=== PATIENT | male | born 1950 | race Caucasian/White ===

== ENCOUNTER 2017-03-22 20:44 | Inpatient (IN) | payer MEDICARE, OTHER ==
[2017-03-22 21:00] LABS: Glucose,Whole Blood 161 mg/dL (75-99)
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
[2017-03-22 21:24] LABS: Basophils # (A) 0.1 k/uL (0-0.2); Basophils % (A) 1 %; CH 31.8; CHCM 33.6; Eosinophils # (A) 0.6 k/uL (0-0.7); Eosinophils % (A) 5 %; HCT 45.8 % (39.0-53.0); HDW 2.57; HGB 15.6 gm/dL (13.0-17.5); Luc # (Auto) 0.24; Luc % (Auto) 2; Lymphocytes # (A) 1.7 k/uL (1.0-4.8); Lymphocytes % (A) 14 %; MCH 32.3 pg (25.0-35.0); MCV 95.1 fL (80.0-100.0); Mean Platelet Volume 7.8; Monocytes # (A) 0.6 k/uL (0-1.0); Monocytes % (A) 5 %; Neutrophils % (A) 74 %; RBC 4.82 m/uL (4.30-5.90); RDW 14.5 % (11.5-15.5); WBC 12.2 k/uL (3.8-10.6); WBC (Perox) 11.67
[2017-03-22 21:36] LABS: ALT 79 U/L (21-72); AST 67 U/L (17-59); Alkaline Phosphatase 119 U/L (38-126); Anion Gap 13 mmol/L; Blood Urea Nitrogen 21 mg/dL (9-20); Calcium 9.3 mg/dL (8.4-10.2); Carbon Dioxide 24 mmol/L (22-30); Chloride 104 mmol/L (98-107); Glucose 166 mg/dL (74-99); Magnesium 1.4 mg/dL (1.6-2.3); Non-African American GFR(MDRD) >60 (>60 ml/min/1.73 sqM); Potassium 3.9 mmol/L (3.5-5.1); Sodium 141 mmol/L (137-145); Total Bilirubin 0.6 mg/dL (0.2-1.3); Total Protein 7.4 g/dL (6.3-8.2)
[2017-03-22 21:40] LABS: Prothrombin Time 10.4 sec (9.0-12.0)
[2017-03-22 21:44] LABS: Creatine Kinase 41 U/L (55-170)
[2017-03-22 21:57] LABS: Creatine Kinase MB 0.4 ng/mL (0.0-2.4); Troponin I <0.012 ng/mL (0.000-0.034)
[2017-03-22] MEDS ORDERED: RX INFO: IV CONTRAST WAS GIVEN 1 EACH MISC MISCELLANE PRN (22:26)
[2017-03-22 22:48] LABS: Appearance,Urine Clear (Clear); Bilirubin,Urine Negative (Negative); Glucose,Urine (UA) Negative (Negative); Ketones,Urine Negative (Negative); Leukocyte Esterase,Urine Negative (Negative); Mucus,Urine Rare /hpf; Nitrite,Urine Negative (Negative); Particle Count 3664; Protein,Urine 1+ (Negative); RBC,Urine 2 /hpf (0-5); Specific Gravity,Urine 1.019 (1.001-1.035); UA Billing (MACRO vs. MICRO) MICRO; Urobilinogen,Urine <2.0 mg/dL (<2.0); WBC,Urine 2 /hpf (0-5)
--- NOTE | 2017-03-22 22:50 | XR ---
EXAM: XR Chest, 2 Views CLINICAL HISTORY: Reason: syncope TECHNIQUE: Frontal and lateral views of the chest. COMPARISON: No relevant prior studies available. FINDINGS: Lungs: Bilateral interstitial prominence. Bibasilar opacities, possible atelectasis or pneumonitis. Pleural space: Trace pleural effusions not excluded. Heart: Cardiac silhouette within normal limits. Mediastinum: Prominent mediastinal silhouette, may related to tortuous aorta. Bones/joints: Grossly intact. IMPRESSION: 1. Bilateral interstitial prominence. Bibasilar opacities, possible atelectasis or pneumonitis. 2. Trace pleural effusions not excluded. 3. Prominent mediastinal silhouette, may related to tortuous aorta. Compare to priors if available. CT may be considered if there is concern for underlying pathology.
--- NOTE | 2017-03-22 22:59 | CT ---
EXAM: CT Head Without Intravenous Contrast CLINICAL HISTORY: Reason: syncope TECHNIQUE: Axial computed tomography images of the head/brain without intravenous contrast. CTDI is 60.3 mGy and DLP is 1105.7 mGy-cm. This CT exam was performed using one or more of the following dose reduction techniques: automated exposure control, adjustment of the mA and/or kV according to patient size, and/or use of iterative reconstruction technique. COMPARISON: No relevant prior studies available. FINDINGS: Brain: Small hypodense focus in the right rachel, possible artifact or age indeterminate infarct. Nonspecific patchy white matter low attenuation, possible small vessel disease. No intracranial hemorrhage, mass effect or midline shift. No acute cortical infarct. Ventricles: Unremarkable. Bones/joints: No acute fracture. Soft tissues: Unremarkable. Sinuses: Unremarkable as visualized. Mastoid air cells: Unremarkable as visualized. IMPRESSION: 1. No intracranial hemorrhage or skull fracture. 2. Small hypodense focus in the right rachel, possible artifact or age indeterminate infarct. MRI may be considered if there is concern for acute ischemia. 3. Nonspecific patchy white matter low attenuation, possible small vessel disease.
--- NOTE | 2017-03-22 23:47 | CT ---
EXAM: CT Angiography Chest With Intravenous Contrast CLINICAL HISTORY: Syncope. Reason: pe protocol TECHNIQUE: Axial computed tomographic angiography images of the chest with intravenous contrast using pulmonary embolism protocol. CTDI is 0.17, 25. 2, 75.6, 37.43 mGy and DLP is 1493 mGy-cm. This CT exam was performed using one or more of the following dose reduction techniques: automated exposure control, adjustment of the mA and/or kV according to patient size, and/or use of iterative reconstruction technique. MIP reconstructed images were created and reviewed. COMPARISON: No relevant prior studies available. FINDINGS: Pulmonary arteries: Evaluation for PE is limited by suboptimal bolus timing. No large central PE is identified. Aorta: No aortic aneurysm or dissection. Atherosclerotic disease. Lungs: Mild dependent lung densities, likely atelectasis. A 4 mm right middle lobe nodule (image [id number]). Questionable faint 5 mm groundglass nodule in the right mid lung (image [id number]). Small bilateral calcified nodules. Pleural space: No significant effusion. No pneumothorax. Heart: Thickening of the left ventricular wall. Bones/joints: No acute fracture. Soft tissues: Unremarkable. Lymph nodes: Prominent right greater than left axillary lymph nodes. Small mediastinal and hilar lymph nodes. Liver: Fatty liver. Spleen: Mild splenomegaly. Adrenals: Nodular thickening of the right adrenal gland. Kidneys and ureters: Right renal hypodensity, probable cyst. Stomach and bowel: Small duodenal diverticula. IMPRESSION: 1. Evaluation for PE is limited by suboptimal bolus timing. No large central PE is identified. 2. No aortic aneurysm or dissection. 3. Mild dependent lung densities, likely atelectasis. Small pulmonary nodules. Compare to prior studies if available, otherwise follow up imaging may be considered per Fleischner Society recommendations. 4. Prominent right greater than left axillary lymph nodes. 5. Additional findings, as above.
[2017-03-23] MEDS ORDERED: LEVOFLOXACIN 750MG-D5W PMX 750 MG in DEXTROSE/WATER 1 150ML.BAG IVPB STA (00:39)
[2017-03-23] MEDS ORDERED: NALOXONE 0.4 MG/ML 1 ML VIAL IV PRN (00:42)
[2017-03-23] MEDS: SODIUM CHLORIDE 0.9% 1,000 ML IV SCH (01:02)
[2017-03-23 01:52] VITALS: BMI 43.9
[2017-03-23 05:24] LABS: Creatine Kinase MB 0.5 ng/mL (0.0-2.4); Troponin I 0.025 ng/mL (0.000-0.034)
[2017-03-23] MEDS ORDERED: Magnesium Replacement Protocol 1 EACH MISC MISCELLANE PRN (08:32)
[2017-03-23] MEDS: MAGNESIUM SULFATE-D5W PMX 1 GM in DEXTROSE/WATER 1 100ML.BAG IVPB SCH ×3 (10:00→15:18)
--- NOTE | 2017-03-23 10:14 | NM ---
EXAMINATION TYPE: NM pul vent and perfuse DATE OF EXAM: 03/23/2017 COMPARISON: Chest x-ray 03/22/2017 HISTORY: Syncope TECHNIQUE: Utilizing inhalation of 71.5 mCi Tc 99m DTPA aerosol and intravenous injection of 5.5 mCi of Tc 99m MAA, ventilation and perfusion images are acquired post injection in multiple projections. FINDINGS: No moderate or large mismatched defects are evident. No triple matched defects are evident. IMPRESSION: Low probability for pulmonary embolism.
[2017-03-23 10:24] LABS: Creatine Kinase MB 0.7 ng/mL (0.0-2.4); Troponin I 0.012 ng/mL (0.000-0.034)
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
[2017-03-23] MEDS: LOSARTAN-HCTZ 50-12.5 MG 1 EACH TAB PO SCH (13:55)
[2017-03-23] MEDS: CARVEDILOL 12.5 MG TAB PO SCH (13:55)
[2017-03-23] MEDS: PANTOPRAZOLE 40 MG TABLET PO SCH (13:55)
--- NOTE | 2017-03-23 15:49 | US ---
EXAMINATION TYPE: US carotid duplex BILAT DATE OF EXAM: 03/23/2017 COMPARISON: NONE CLINICAL HISTORY: r/o carotid stenosis. Syncope, no h/o stroke EXAM MEASUREMENTS: RIGHT: Peak Systolic Velocity (PSV) cm/sec ----- Right CCA: 57.3 ----- Right ICA: 72.9 ----- Right ECA: 78.1 ICA/CCA ratio: 1.3 RIGHT: End Diastole cm/sec ----- Right CCA: 14.2 ----- Right ICA: 22.0 ----- Right ECA: 16.8 LEFT: Peak Systolic Velocity (PSV) cm/sec ----- Left CCA: 60.3 ----- Left ICA: 102.9 ----- Left ECA: 65.2 ICA/CCA ratio: 1.7 LEFT: End Diastole cm/sec ----- Left CCA: 17.5 ----- Left ICA: 34.8 ----- Left ECA: 14.7 VERTEBRALS (direction of flow): Right Vertebral: Antegrade Left Vertebral: Antegrade very difficult patient to scan due to thick neck and heavy breathing and snoring by patient, attemp ts to wake him up No obvious signs of stenosis seen IMPRESSION: 1. No significant flow-limiting stenosis by ultrasound evaluation. Criteria for Assigning % of Stenosis / Diameter reduction (Estimation based on the indirect measurements of the internal carotid artery velocities (ICA PSV). 1. Normal (no stenosis)=ICA PSV < 125 cm/s: ratio < 2.0: ICA EDV<40 cm/s. 2. Less than 50% stenosis=ICA PSV < 125 cm/s: ratio < 2.0: ICA EDV<40 cm/s. 3. 50 to 69% stenosis=ICA PSV of 125 to 230 cm/s: ration 2.0 ? 4.0: ICA EDV 40-100 cm/s. 4. Greater than 70% stenosis to near occlusion= ICA PSV > 230 cm/s: ratio > 4.0: ICA EDV > 100 cm/s. 5. Near occlusion= ICA PSV velocities may be low or undetectable: variable ratio and ICA EDV. 6. Total occlusion=unable to detect flow.
[2017-03-23] MEDS: ceFAZolin 2 GM in SODIUM CHLORIDE 0.9% 100 ML IVPB SCH ×2 (17:53→22:57)
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
--- NOTE | 2017-03-23 19:28 | ECHOF ---
Referral Reason:syncope MEASUREMENTS -------- HEIGHT: 180.3 cm WEIGHT: 142.9 kg BP: IVSd: 1.4 cm (0.6 - 1.1) LVIDd: 3.8 cm (3.9 - 5.3) LVPWd: 1.5 cm (0.6 - 1.1) IVSs: 1.7 cm LVIDs: 2.6 cm LVPWs: 1.6 cm Ao Diam: 3.7 cm (2.0 - 3.7) AV Cusp: 2.3 cm (1.5 - 2.6) LA Diam: 3.4 cm (2.7 - 3.8) MV EXCURSION: 21.085 mm (> 18.000) MV EF SLOPE: 76 mm/s (70 - 150) EPSS: 0.7 cm MV E Zeke: 0.43 m/s MV DecT: 190 ms MV A Zeke: 0.83 m/s MV E/A Ratio: 0.52 RAP: 5.00 mmHg RVSP: 13.08 mmHg FINDINGS -------- Sinus rhythm. This was a technically difficult study with suboptimal views. There is mild concentric left ventricular hypertrophy. Overall left ventricular systolic function is mildly impaired with, an EF between 45 - 50 %. Apical septum LV wall motion is hypokinetic. The right ventricle is normal in size and function. The left atrium is normal in size. The right atrium is normal in size. 1.5mg of Definity was utilized for enhancement of images The aortic valve is trileaflet, and appears structurally normal. No aortic stenosis or regurgitation. The mitral valve leaflets are mildly thickened. Mild mitral regurgitation is present. Mild tricuspid regurgitation present. The right ventricular systolic pressure, as measured by Doppler, is 13.08mmHg. The pulmonic valve was not well visualized. The aortic root size is normal. There is no pericardial effusion. CONCLUSIONS -------- 1. Sinus rhythm. 2. Mild mitral regurgitation is present. 3. Mild tricuspid regurgitation present. 4. The right ventricular systolic pressure, as measured by Doppler, is 13.08mmHg. 5. The pulmonic valve was not well visualized. 6. The aortic root size is normal. 7. There is no pericardial effusion. 8. This was a technically difficult study with suboptimal views. 9. There is mild concentric left ventricular hypertrophy. 10. Overall left ventricular systolic function is mildly impaired with, an EF between 45 - 50 %. 11. Apical septum LV wall motion is hypokinetic. 12. The left atrium is normal in size. 13. 1.5mg of Definity was utilized for enhancement of images 14. The aortic valve is trileaflet, and appears structurally normal. No aortic stenosis or regurgitation. 15. The mitral valve leaflets are mildly thickened. RAG INSPECTOR: Margarette Patel RDCS
--- NOTE | 2017-03-23 19:59 | MR ---
EXAMINATION TYPE: MR brain wo con DATE OF EXAM: 03/23/2017 COMPARISON: CT brain 03/22/2017 HISTORY: Blacked Out, Patient with right rachel lesion Standard multiplanar, multisequence MRI departmental protocol Multiplanar, multisequence images of the brain were acquired. Diffusion weighted imaging was performe d. FINDINGS: There is cerebral cortical atrophy. There is no mass effect nor midline shift. There is marisa e thinning of the corpus callosum. There is a 1.5 cm area of slight increased signal within the centr al rachel on the T2 and FLAIR images consistent with small vessel ischemia. There is no evidence of a m ass. Ventricles are not enlarged. There is moderate patchy increased signal in the periventricular white matter on the T2 and FLAIR sybil ges. Total number is approximately 20. These lesions measure up to 1.5 cm. There is also involvement of the corpus callosum. There is no evidence of acute cortical infarct. There is a 5 mm focus of incr eased signal in the white matter right anterior temporal lobe. IMPRESSION: Extensive white matter signal changes in the posterior hemispheres and to lesser extent the rachel. Thi s is consistent with severe chronic small vessel ischemia or demyelinating disease. No evidence of co rtical infarct.
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
[2017-03-24] MEDS ORDERED: LEVOFLOXACIN 750MG-D5W PMX 750 MG in DEXTROSE/WATER 1 150ML.BAG IVPB SCH (02:00)
[2017-03-24] MEDS: SODIUM CHLORIDE 0.9% 1,000 ML IV SCH (02:37)
[2017-03-24] MEDS: PANTOPRAZOLE 40 MG TABLET PO SCH (06:53)
[2017-03-24] MEDS: ceFAZolin 2 GM in SODIUM CHLORIDE 0.9% 100 ML IVPB SCH ×3 (08:58→23:03)
[2017-03-24] MEDS: TRIAMCINOLONE ACET 0.1% OINTMENT 15 GM TUBE TOPICAL SCH ×2 (09:00→20:27)
[2017-03-24] MEDS ORDERED: NYSTAT-TRIAMCIN 100,000-0.1 UNIT/GM-% CREAM 30 GM TUBE TOPICAL SCH (09:00)
[2017-03-24] MEDS: NYSTATIN 100,000 UNIT/GM OINT 30 GM TUBE TOPICAL SCH ×2 (09:00→20:27)
[2017-03-24] MEDS: MAGNESIUM SULFATE-D5W PMX 1 GM in DEXTROSE/WATER 1 100ML.BAG IVPB SCH ×2 (10:08→11:32)
--- NOTE | 2017-03-24 11:10 | EEG ---
DATE OF SERVICE: 03/23/2017 INDICATION FOR EXAMINATION: This patient is a 66-year-old male being evaluated for recurrent syncope. AGE: 66 EEG FINDINGS: A routine 21-channel awake digital EEG recording was accomplished utilizing the 10-20 international system with bipolar and referential montages. The background activity in the most alert resting state consists of a low to medium amplitude fairly well developed and well sustained 6-7 Hz activity over the posterior head regions. This posterior rhythm attenuates to eye opening. There is a small amount of low amplitude 18-20 Hz beta activity seen maximally over the anterior head regions. Muscle and movement artifact was observed on a few occasions during the tracing. Hyperventilation was not performed. Photic stimulation at flash frequencies of 2 -30 Hz produced a minimal occipital driving response. No epileptiform discharges were seen. IMPRESSION: This EEG is mildly abnormal in a diffuse fashion due to slight slowing of the EEG background. The EEG failed to reveal any focal, lateralized or epileptiform abnormalities. Clinical correlation is recommended. LAKSHMID
[2017-03-24] MEDS: CARVEDILOL 12.5 MG TAB PO SCH (12:45)
[2017-03-24] MEDS: CYANOCOBALAMIN 500 MCG TAB PO SCH (12:45)
[2017-03-24] MEDS: LOSARTAN-HCTZ 50-12.5 MG 1 EACH TAB PO SCH (12:46)
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
[2017-03-25] MEDS: SODIUM CHLORIDE 0.9% 1,000 ML IV SCH (03:51)
[2017-03-25 06:13] LABS: Basophils # (A) 0.1 k/uL (0-0.2); Basophils % (A) 1 %; CH 31.5; Eosinophils # (A) 0.6 k/uL (0-0.7); Eosinophils % (A) 6 %; HCT 44.6 % (39.0-53.0); HDW 2.57; HGB 14.7 gm/dL (13.0-17.5); Luc # (Auto) 0.22; Luc % (Auto) 2; Lymphocytes # (A) 1.5 k/uL (1.0-4.8); Lymphocytes % (A) 16 %; MCH 31.6 pg (25.0-35.0); MCV 95.8 fL (80.0-100.0); Mean Platelet Volume 7.6; Monocytes # (A) 0.5 k/uL (0-1.0); Monocytes % (A) 6 %; Neutrophils # (A) 6.5 k/uL (1.3-7.7); Neutrophils % (A) 70 %; RBC 4.65 m/uL (4.30-5.90); RDW 14.4 % (11.5-15.5); WBC 9.3 k/uL (3.8-10.6); WBC (Perox) 8.98
[2017-03-25 06:29] LABS: Anion Gap 8 mmol/L; Blood Urea Nitrogen 17 mg/dL (9-20); Calcium 9.1 mg/dL (8.4-10.2); Carbon Dioxide 30 mmol/L (22-30); Chloride 103 mmol/L (98-107); Glucose 126 mg/dL (74-99); Magnesium 1.8 mg/dL (1.6-2.3); Non-African American GFR(MDRD) >60 (>60 ml/min/1.73 sqM); Potassium 4.3 mmol/L (3.5-5.1); Sodium 141 mmol/L (137-145)
[2017-03-25] MEDS: PANTOPRAZOLE 40 MG TABLET PO SCH (06:29)
[2017-03-25] MEDS: ceFAZolin 2 GM in SODIUM CHLORIDE 0.9% 100 ML IVPB SCH ×3 (07:43→23:27)
[2017-03-25] MEDS: TRIAMCINOLONE ACET 0.1% OINTMENT 15 GM TUBE TOPICAL SCH ×2 (07:43→21:18)
[2017-03-25] MEDS: NYSTATIN 100,000 UNIT/GM OINT 30 GM TUBE TOPICAL SCH ×2 (07:44→21:18)
[2017-03-25] MEDS: CARVEDILOL 12.5 MG TAB PO SCH (07:44)
[2017-03-25] MEDS: LOSARTAN-HCTZ 50-12.5 MG 1 EACH TAB PO SCH (07:45)
[2017-03-25] MEDS: CYANOCOBALAMIN 500 MCG TAB PO SCH (07:46)
[2017-03-25] MEDS: MAGNESIUM SULFATE-D5W PMX 1 GM in DEXTROSE/WATER 1 100ML.BAG IVPB SCH ×2 (09:02→10:08)
--- NOTE | 2017-03-25 10:14 | PN ---
SUBJECTIVE: 66-year-old white male obese. CT scan of the brain shows an old stroke. Shoe Polisher has ordered stress test for Sunday. He is morbidly obese. He appears to have sleep apnea. He is gasping for breath when he is sleeping. He has been treated for cellulitis of the right arm and right lateral chest wall with IV Levaquin as he has PENICILLIN ALLERGY. Infectious disease consult. Blood pressure and risk factor modifications are being done. Discussed the case with the patient and family. Patient will be stressed out on stress test on Sunday with Persantine stress test and risk factor modification will be done. CHELSEY
--- NOTE | 2017-03-25 12:22 | PN ---
DATE OF SERVICE: 03/24/2017 REASON FOR FOLLOW UP: Right chest wall cellulitis. INTERVAL HISTORY: The patient is afebrile. He noticed to have slight worsening redness this morning. hence, Mycolog cream was added. By the time of my evaluation this afternoon the patient's rash had improved. Patient is complaining of some itching but no significant burning or pain. Denies significant chest pain. No shortness of breath or cough. No abdominal pain or diarrhea. On examination: Blood pressure 122/69 with pulse 91. Temperature 97.8. He is 90 % on room air. General description is an elderly male lying in bed in no distress. RESPIRATORY: Unlabored breathing. Clear to auscultation anteriorly. HEART: S1, S2 regular rate and rhythm. ABDOMEN: Soft, no tenderness. The right chest wall overall swelling has decreased in intensity. No skin breakdown and no drainage. LABS: No new labs have been obtained today. DIAGNOSTIC IMPRESSION AND PLAN: Patient with right chest wall and medial arm redness with likely component of cellulitis. Patient has been treated with Mycolog cream today to which the patient responded while awaiting of the culture to finalize. Continue supportive care. . MTDD
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
[2017-03-25] MEDS: methylPREDNISolone SOD SUCCI 125 MG/2 ML VIAL IV SCH ×2 (18:09→23:27)
[2017-03-25 20:45] LABS: Glucose,Whole Blood 210 mg/dL (75-99)
[2017-03-25] MEDS: INSULIN LISPRO (humaLOG) 300 UNIT/3 ML VIAL SQ SCH (21:18)
[2017-03-26] MEDS: SODIUM CHLORIDE 0.9% 1,000 ML IV SCH (04:40)
[2017-03-26] MEDS: methylPREDNISolone SOD SUCCI 125 MG/2 ML VIAL IV SCH ×2 (04:46→11:01)
[2017-03-26] MEDS ORDERED: REGADENOSON 0.4 MG/5 ML SYRINGE IV ONE (05:00)
[2017-03-26] MEDS ORDERED: AMINOPHYLLINE 500 MG/20 ML VIAL IV PRN (05:00)
[2017-03-26 05:48] LABS: Glucose,Whole Blood 242 mg/dL (75-99)
[2017-03-26] MEDS: INSULIN LISPRO (humaLOG) 300 UNIT/3 ML VIAL SQ SCH ×2 (06:02→12:38)
[2017-03-26] MEDS: PANTOPRAZOLE 40 MG TABLET PO SCH (06:03)
[2017-03-26] MEDS ORDERED: ASPIRIN 325 MG TAB PO SCH (09:00)
--- NOTE | 2017-03-26 09:02 | US ---
EXAMINATION TYPE: US abdomen complete DATE OF EXAM: 03/24/2017 COMPARISON: NONE CLINICAL HISTORY: lft elevation. EXAM MEASUREMENTS: Liver Length: 21.4 Gallbladder Wall: 0.4m CBD: 0.3m Spleen: 12.7 Right Kidney: 12.5 x 6.3 x 5.6 Left Kidney: 11.9 x 5.5 x 5.2 Pancreas: not visualized due to bowel gas Liver: measures large, echotexture is echogenic likely due to fatty infiltration Gallbladder: wnl Evidence for sonographic Griffin's sign: no CBD: wnl Spleen: measures large in size Right Kidney: anechoic lesion likely cyst measuring 3.8 x 3.6 x 4.2 cm Left Kidney: wnl Upper IVC: not visualized due to bowel gas Abd Aorta: not well not visualized due to bowel gas Limited due to pt body habitus, unable to hold breath well, and density of liver. Likely a right renal cyst present measuring 3.8 x 3.6 x 4.2 cm. The pancreas is not visualized. The liver is enlarged measuring 21.4 cm. It is echogenic and likely fatty infiltrated. The gallbladder is normal without evidence of cholelithiasis. The gallbladder wall measures 1.8 mm. T his common hepatic duct measures 3 mm. The spleen is upper limits of normal in size. The left kidney is normal. There is a hypoechoic lesion arising from the upper pole of the right kidn ey. This does not meet the requirements of a simple cyst. Visualized portions of aorta and IVC are unremarkable. IMPRESSION: 1. HEPATOMEGALY AND FATTY INFILTRATION OF THE LIVER. 2. HYPOECHOIC LESION ARISING FROM THE UPPER POLE OF THE RIGHT KIDNEY DOES NOT MEET THE REQUIREMENTS O F SIMPLE CYST. FURTHER INVESTIGATION WITH CT OR MR WOULD BE SUGGESTED.
[2017-03-26 09:23] VITALS: RESP 16; TEMP 97.5
[2017-03-26 10:02] LABS: Hemoglobin A1C 7.6 % (4.2-6.1)
[2017-03-26] MEDS: CARVEDILOL 12.5 MG TAB PO SCH (10:58)
[2017-03-26] MEDS: CYANOCOBALAMIN 500 MCG TAB PO SCH (10:59)
[2017-03-26] MEDS: ceFAZolin 2 GM in SODIUM CHLORIDE 0.9% 100 ML IVPB SCH (10:59)
[2017-03-26] MEDS: LOSARTAN-HCTZ 50-12.5 MG 1 EACH TAB PO SCH (10:59)
[2017-03-26] MEDS: TRIAMCINOLONE ACET 0.1% OINTMENT 15 GM TUBE TOPICAL SCH (10:59)
[2017-03-26] MEDS: NYSTATIN 100,000 UNIT/GM OINT 30 GM TUBE TOPICAL SCH (10:59)
--- NOTE | 2017-03-26 11:19 | NM ---
EXAMINATION TYPE: NM stress Lexiscan cardiolite DATE OF EXAM: 03/26/2017 COMPARISON: None HISTORY: Syncope TECHNIQUE: After the intravenous administration of 10.98 mCi Tc 99m Sestamibi - Cardiolite resting S PECT images acquired 45 minutes post injection. The patient received 0.4mg Lexiscan, 26.6 mCi Tc 99m Sestamibi - Stress images obtained [address] injection FINDINGS: There is a fixed defect in the anterolateral wall of the left ventricle. I do not see convi ncing evidence of inducible ischemic change. There is diffuse hypokinesia of the left ventricle and t he ejection fracture is only 44%. IMPRESSION: EVIDENCE OF PREVIOUS ANTEROLATERAL INFARCT WITHOUT DEFINITE INDUCIBLE ISCHEMIC CHANGE AT THIS TIME.
[2017-03-26 11:54] LABS: Glucose,Whole Blood 236 mg/dL (75-99)
--- NOTE | 2017-03-26 12:30 | PN ---
SUBJECTIVE: A 66-year-old white male with atypical chest pains, he has sleep apnea, cellulitis to the right thoracic right arm, improving, hypertension acceleration improving, obesity. Patient will be set up for stress test tomorrow. Remain on IV antibiotics. If he passes his stress test, he will be able to go home. Be discharged and followup as outpatient. Blood pressure is better controlled. Sleep apnea options were given. Lungs are clear. CARDIOVASCULAR: S1, S2. Even settling of [place]. GI: Soft. ENDOCRINE: BMI is over 40. PLAN: Cardiac stress test in the morning and then discharge with oral antibiotics which will be switched from IV tomorrow. If he passes his stress test, he will be able to go home. CHELSEY
--- NOTE | 2017-03-26 12:54 | P.DS ---
Providers Date of admission: 03/23/17 00:42 Expected date of discharge: 03/26/17 Attending physician: James Sweet Consults: 03/23/17 00:42 Consult Physician Urgent Consulting Provider: Sanchez Gomez Consult Reason/Comments: syncope Do you want consulting provider notified?: Yes 03/23/17 00:43 Consult Physician Urgent Consulting Provider: Benedict Beckman Consult Reason/Comments: syncope Do you want consulting provider notified?: Yes 03/23/17 13:30 Consult Physician Routine Consulting Provider: Audrey Conklin Consult Reason/Comments: Rash Do you want consulting provider notified?: Yes Primary care physician: Surjit Vaughn [facility] Course: cardiology cleared/neurology cleared,normal stress test,needs outpatient sleep apnea test Patient Condition at Discharge: Good Plan - Discharge Summary New Discharge Prescriptions: No Action Losartan/Hydrochlorothiazide [Losartan-Hctz 100-25 mg Tab] 1 tab PO DAILY Cyanocobalamin (Vitamin B-12) [Vitamin B-12] 1,000 mcg PO DAILY Omeprazole 20 mg PO DAILY Carvedilol 25 mg PO DAILY Discharge Medication List Carvedilol 25 mg PO DAILY 03/22/17 [History] Cyanocobalamin (Vitamin B-12) [Vitamin B-12] 1,000 mcg PO DAILY 03/22/17 [ History] Losartan/Hydrochlorothiazide [Losartan-Hctz 100-25 mg Tab] 1 tab PO DAILY [History] Omeprazole 20 mg PO DAILY 03/22/17 [History] Follow up Appointment(s)/Referral(s): Surjit Vaughn MD [Primary Care Provider] - 1-2 days Benedict Beckman MD [STAFF PHYSICIAN] - 1 Week Konrad Patel MD [STAFF PHYSICIAN] - 1 Week Patient Instructions/Handouts: Syncope (DC), Cardiac Stress Test (GEN) Activity/Diet/Wound Care/Special Instructions: 30 day personnel monitor from cardiology associates to picker.
--- NOTE | 2017-03-26 12:58 | PN ---
DATE OF SERVICE: 03/25/2017 REASON FOR FOLLOW UP: Right medial arm and right sided chest wall cellulitis and rash. INTERVAL HISTORY: The patient is afebrile. He is breathing comfortably. The erythematous rash to the right-sided chest wall has improved. However, he was noticed to have slight extension of the rash on the forearm area though some improvement ( ) on the arm for which Mycolog has been applied. The patient denies significant chest pain. No shortness of breath. No cough. No abdominal pain. No diarrhea. On examination: Blood pressure 126/78 with pulse 84. Temperature 97.9. He is 96 % on room air. General description is an elderly male up in bed in no distress. RESPIRATORY: Unlabored breathing. Clear to auscultation anteriorly. HEART: S1, S2 regular rate and rhythm. ABDOMEN: Soft, no tenderness. Examination of the right chest wall: The erythematous rash has improved as well as on the right medial arm with some new rash noted on the forearm. LABS: Hemoglobin 14.7, white count 9.3 with BUN 73, creatinine 0.99. DIAGNOSTIC IMPRESSION AND PLAN: Patient with right chest wall and forearm erythematous rash with question of cellulitis versus contact dermatitis in patient who does show overall improvement with Mycolog cream in addition to cefazolin with some ( ) rash. Will add short course of IV Solu-Medrol. Continue Mycolog as well as cefazolin and re-evaluate the patient tomorrow. Continue supportive care. MTDD
[2017-03-26 13:05] VITALS: BP 127/63; PULSE 91
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
--- NOTE | 2017-03-27 08:17 | PN ---
DATE OF SERVICE: 03/26/17 REASON FOR FOLLOW UP: Right chest wall cellulitis as well as right arm cellulitis. INTERVAL HISTORY: The patient was seen on rounds this morning. The patient is breathing comfortably. ( ) chest wall area is slightly improved. Right side ( ) increased on the right forearm area, complaining of some itching. No burning pain. Denies any significant chest pain, shortness of breath or cough. On examination, blood pressure 127/55, pulse 91, temperature 97.5, he is 92% on room air. General description revealed an elderly male, up in the room in no distress. Respiratory: Unlabored breathing. Clear to auscultation anteriorly. Heart: S1, S2 regular rate and rhythm. Abdomen soft, no tenderness. Right chest wall swelling and redness has improved. The arm rash slightly increased to the forearm area. Labs: Hemoglobin 14.6, white count 9.0 with a BUN 17, creatinine 0.99. DIAGNOSTIC IMPRESSION AND PLAN: Patient with right chest wall cellulitis with some redness of the rash of the right forearm. The patient will be continued on Mycolog cream along with cefazolin. Plan to finish therapy with po Keflex and Mycolog cream with outpatient follow up. LAK[facility]
--- NOTE | 2017-03-27 17:24 | EST ---
Date of Service: 03/26/17 INDICATIONS: Syncope. BASELINE HEART RATE: 86 BASELINE BLOOD PRESSURE: 142/89 MAXIMUM HEART RATE: 109 MAXIMUM BLOOD PRESSURE: 145/93 85% MPHR: 132 100% MPHR: 156 Lexiscan Cardiolite Report Patient was given Lexiscan injection over the period of 15 seconds with peak heart rate of 103 was achieved. Maximum blood pressure 142/82 mmHg was noted. Resting EKG shows normal sinus rhythm with normal MN interval and QRS duration and normal ST waves. No ST segment depression suggestive of ischemia was noted. The results of the nuclear study will follow. [facility]
--- NOTE | 2017-03-29 14:18 | P.CONS ---
History of Present Illness - Reason for Consult Consult date: 03/23/17 right chest wall cellulitis Requesting physician: James Sweet - Chief Complaint right chest wall swelling and redness, syncopal episode - History of Present Illness Patient is a 66 year old male admitted to hospital for workup for syncopal episode patient was also noticed to have a swelling and redness of the right chest wall with a diagnosis of cellulitis for which I was asked to see the patient for further recommendation patient did mention that he noticed a rash 2 days ago and apparently the patient said he was lying on the floor and may have rubbed against the carpet with some irritation of the area patient did have some dull aching pain into the area 2-3 out of 10 and no radiation some minimal itching, there is no skin breakdowns no drainage , this the rash is extending into the medial upper arm patient denies having any blister or vesicle formation and denies having any burning pain patient denies any high- grade fever rigors and chills Review of Systems Review of system Constitutional: The patient denies any fever or rigors or chills Eyes: No complaint ENT: No complaint Respiratory: No complaint Cardiovascular: No complaint Gastrointestinal: No complaint Genitourinary: No complaint Musculoskeletal: No complaint Integumentary: As per HPI Endocrine : No complaint Psycologial : No complaint Neurological: No complaint. Past Medical History Past Medical History: GERD/Reflux, Hypertension History of Any Multi-Drug Resistant Organisms: None Reported Past Surgical History: Orthopedic Surgery Additional Past Surgical History / Comment(s): lt ankle multiple surgeries Past Anesthesia/Blood Transfusion Reactions: No Reported Reaction Past Psychological History: No Psychological Hx Reported Smoking Status: Current every day smoker Past Alcohol Use History: Occasional Past Drug Use History: None Reported - Past Family History Father Family Medical History: Neurologic Disorder Additional Family Medical History / Comment(s): dementia Mother Family Medical History: Cancer Additional Family Medical History / Comment(s): esophageal Brother(s) Family Medical History: CVA/TIA Additional Family Medical History / Comment(s): cva in 30's Medications and Allergies Home Medications Medication Instructions Recorded Confirmed Type Cyanocobalamin (Vitamin B-12) 1,000 mcg PO DAILY 03/22/17 03/22/17 History [Vitamin B-12] Losartan/Hydrochlorothiazide 1 tab PO DAILY 03/22/17 03/22/17 History [Losartan-Hctz 100-25 mg Tab] RX: Carvedilol 25 mg PO DAILY 03/22/17 03/22/17 History RX: Omeprazole 20 mg PO DAILY 03/22/17 03/22/17 History Allergies Allergy/AdvReac Type Severity Reaction Status Date / Time Penicillins Allergy Anaphylaxis Verified 03/22/17 21:39 Physical Exam Vitals: Vital Signs Temp Pulse Pulse Resp BP BP Pulse Ox 03/23/17 08:00 90 18 145/73 97 03/23/17 04:00 97.3 F L 93 16 140/64 96 03/23/17 01:59 93 16 03/23/17 01:42 96.5 F L 93 16 155/79 98 03/23/17 00:51 97.7 F 74 18 135/71 94 L 03/22/17 23:44 97 18 147/84 97 03/22/17 22:26 136/72 03/22/17 21:34 98.1 F 107 H 20 138/68 93 L 03/22/17 20:48 99.3 F 57 L 18 177/76 99 Intake and Output 03/22/17 03/23/17 03/23/17 22:59 06:59 14:59 Intake Total 100 240 Output Total 551 Balance -451 240 Intake: IV 80 Sodium Chloride 0.9% 1, 80 000 ml @ 20 mls/hr IV . Q24H [facility] Rx#:[id number] Amount of Fluid Infused ( 20 ml) Oral 240 Output: Urine 551 Other: Weight 143.789 kg 143.1 kg General: The patient is awake and alert, in no distress. Skin: Right lateral chest wall redness with some skin peeling no blister. Eye: Pupils are equal, round and reactive to light, there is normal conjunctiva bilaterally. Ears, nose, mouth and throat: There are moist mucous membranes and no oral lesions. Neck: The neck is supple, there is no thyromegaly. Cardiovascular: S1-S2 regular rate and rhythm. No murmur. Respiratory: Unlabored breathing clear to auscultation bilaterally Gastrointestinal: Soft, non-distended, non-tender abdomen without masses or organomegaly noted. Neurological: There are no obvious motor or sensory deficits. Coordination appears grossly intact. Speech is normal. Psychiatric: Patient is awake and alert and oriented 3, appropriate mood & affect, normal judgment. Results CBC & Chem 7: 03/25/17 05:47 03/25/17 05:47 Labs: Abnormal Lab Results - Last 24 Hours (Table) 03/22/17 03/22/17 03/22/17 Range/Units 20:50 20:50 20:50 WBC 12.2 H (3.8-10.6) k/uL Neutrophils # 9.0 H (1.3-7.7) k/uL D-Dimer (<0.60) mg/L FEU BUN 21 H (9-20) mg/dL Glucose 166 H (74-99) mg/dL POC Glucose (mg/dL) (75-99) mg/dL Magnesium 1.4 L (1.6-2.3) mg/dL AST 67 H (17-59) U/L ALT 79 H (21-72) U/L Total Creatine Kinase 41 L (55-170) U/L Urine Protein (Negative) Urine Mucus (None) /hpf 03/22/17 03/22/17 03/22/17 Range/Units 20:50 20:57 22:36 WBC (3.8-10.6) k/uL Neutrophils # (1.3-7.7) k/uL D-Dimer 2.67 H (<0.60) mg/L FEU BUN (9-20) mg/dL Glucose (74-99) mg/dL POC Glucose (mg/dL) 161 H (75-99) mg/dL Magnesium (1.6-2.3) mg/dL AST (17-59) U/L ALT (21-72) U/L Total Creatine Kinase (55-170) U/L Urine Protein 1+ H (Negative) Urine Mucus Rare H (None) /hpf 03/23/17 03/23/17 Range/Units 04:17 09:27 WBC (3.8-10.6) k/uL Neutrophils # (1.3-7.7) k/uL D-Dimer (<0.60) mg/L FEU BUN (9-20) mg/dL Glucose (74-99) mg/dL POC Glucose (mg/dL) (75-99) mg/dL Magnesium (1.6-2.3) mg/dL AST (17-59) U/L ALT (21-72) U/L Total Creatine Kinase 38 L 45 L (55-170) U/L Urine Protein (Negative) Urine Mucus (None) /hpf Assessment and Plan (1) Cellulitis Status: Inactive Plan: 1-patient with erythematous rash involving the right lateral chest wall and medial right upper arm, with some skin peeling more likely a cellulitis clinically doubt herpes zoster 2-patient with a penicillin ALLERGY but no history of anaphylaxis 3-plan for cefazolin 2 g every 8 hours M Leslie the redness 4-discontinue the Levaquin 5-follow-up clinical condition and culture to further adjust medication if needed thank you for this consultation , will follow this Patient along with you
== END 2017-03-26 15:08 | disposition home or self-care (01) | DRG 603 ==
LOC: EC 20:44 → 6SEL 03-23 00:42
PROVIDERS: ADMIT Family Medicine; ATTEND Family Medicine
DX: L03.313 Cellulitis of chest wall (principal); L03.113 Cellulitis of right upper limb; Z68.41 Body mass index [BMI] 40.0-44.9, adult; E66.01 Morbid (severe) obesity due to excess calories; I10 Essential (primary) hypertension; R55 Syncope and collapse; F17.200 Nicotine dependence, unspecified, uncomplicated; G47.30 Sleep apnea, unspecified; K21.9 Gastro-esophageal reflux disease without esophagitis; R07.89 Other chest pain; R73.9 Hyperglycemia, unspecified; R00.2 Palpitations; Z79.899 Other long term (current) drug therapy; Z86.73 Personal history of transient ischemic attack (TIA), and cerebral infarction without residual deficits; Z88.0 Allergy status to penicillin
CPT/HCPCS: 36415; 70450; 70551; 71020; 71275; 76700; 78452; 78582; 80048; 80053; 81001; 82550; 82553; 83036; 83605; 83735; 84484; 85025; 85379; 85610; 85730; 87040; 93005; 93017; 93306; 93880; 94760; 95819; 96365; 99285